=== PATIENT | female | born 1980 | race Caucasian/White ===

== ENCOUNTER 2020-11-16 09:25 | Emergency (ER) | payer MEDICAID, MEDICARE ==
[~2020-11-16] VITALS: Ht 162.6 cm; Wt 72.6 kg
[~2020-11-16 09:25] MED LIST: FERR325T30 PO; [UNRECOGNIZED DRUG - CODE] PO
[2020-11-16 09:40] VITALS: BP_SYST 158
--- NOTE | 2020-11-16 09:45 | NUR ---
Pt to bed 8 for evaluation.
--- NOTE | 2020-11-16 09:45 | NUR ---
Pt AAO reporting headache since yesterday. Pt reports that she feels dizzy and has neck tension also. Pt also has a history of migraines and anxiety. Pt states that her heart has been racing lately. Her current heart rate is noted to be 111. Pt reports 8/10 pain scale.
--- NOTE | 2020-11-16 09:55 | NUR ---
Dr. Barry at bedside to assess.
[2020-11-16] MEDS ORDERED: SUMAtriptan SUCCINATE 6 MG/0.5 ML VIAL SUBCUT ONE (10:00)
--- NOTE | 2020-11-16 10:08 | NUR ---
Pt to CT scan by wheelchair.
--- NOTE | 2020-11-16 10:18 | NUR ---
Pt back from radiology.
--- NOTE | 2020-11-16 10:45 | NUR ---
Lab at bedside for blood draw.
[2020-11-16 11:05] LABS: BASOPHILS % (AUTO) 0.6 % (0.0-2.0); EOSINOPHILS % (AUTO) 0.6 % (0.0-4.0); HEMATOCRIT 37.3 % (36-48); HEMOGLOBIN 12.4 g/dL (12.0-16.0); LYMPHOCYTES # (AUTO) 1.5 K/uL (1.0-5.5); LYMPHOCYTES % (AUTO) 20.9 % (20.5-51.5); MEAN CORPUSCULAR HEMOGLOBIN 26 pg (27-31); MEAN CORPUSCULAR HGB CONC 33 % (32-36); MEAN CORPUSCULAR VOLUME 77 fL (79.0-98.0); MONOCYTES # (AUTO) 0.5 K/uL (0.0-1.0); MONOCYTES % (AUTO) 7.5 % (1.7-9.3); NEUTROPHILS % (AUTO) 70.4 % (40.0-70.0); PLATELET COUNT (AUTO) 242 K/uL (130-430); RED BLOOD CELL COUNT(AUTO) 4.84 MIL/uL (4.2-6.2); RED CELL DISTRIBUTION WIDTH 13.1 % (9.0-15.0); WHITE BLOOD COUNT (AUTO) 7.2 K/uL (4.8-10.8)
[2020-11-16 11:22] LABS: PROTHROMBIN TIME 10.2 SECS (9.5-12.5)
[2020-11-16 11:35] LABS: CALCIUM 9.2 mg/dL (8.4-11.0); CREATININE 0.76 mg/dL (0.55-1.30); POTASSIUM 3.3 mmol/L (3.5-5.1)
--- NOTE | 2020-11-16 11:35 | NUR ---
Pt resting quietly in no distress awaiting disposition.
[2020-11-16 11:40] LABS: ALBUMIN 4.1 g/dL (3.4-4.8); C-REACTIVE PROTEIN QUANT 0.9 mg/dL (0-0.5); TOTAL BILIRUBIN 0.3 mg/dL (0.0-1.0)
[2020-11-16 11:48] LABS: ERYTHROCYTE SEDIMENTATION RATE 15 MM/HR (0-20)
[2020-11-16] MEDS ORDERED: HYDR-3917 PO (12:00)
[2020-11-16] MEDS ORDERED: IBUP-1969 PO (12:00)
[2020-11-16] MEDS ORDERED: MECL-225 PO (12:00)
[2020-11-16 13:00] VITALS: BP_SYST 146
--- NOTE | 2020-11-16 13:00 | NUR ---
Patient given written and verbal discharge instructions and verbalizes understanding. Dr. Jhonny CORMIER MD discussed with patient the results and treatment provided. Patient in stable condition. ID arm band removed. Rx per Dr. Barry given. Patient educated on pain management and to follow up with PMD. Pain Scale 0/10. Opportunity for questions provided and answered. Medication side effect fact sheet provided.
== END 2020-11-16 13:00 | disposition home or self-care (01) ==
LOC: SED 09:25
DX: R51.9 Headache, unspecified (principal); Z79.899 Other long term (current) drug therapy
CPT/HCPCS: 36415; 70450; 76376; 80053; 81025; 85025; 85610; 85651; 85730; 86140; 93005; 96372; 99285; J3030